=== PATIENT | female | born 1990 | race Caucasian/White ===

== ENCOUNTER 2019-07-26 12:18 | Emergency (ER) | payer OTHER ==
[~2019-07-26] VITALS: Ht 165.1 cm; Wt 67.1 kg
[2019-07-26] MEDS ORDERED: KETOROLAC TROMETHAMINE INJ 30 MG/ML VIAL ONE (12:45)
--- NOTE | 2019-07-26 12:50 | NUR ---
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
[2019-07-26] MEDS ORDERED: KETOROLAC TROMETHAMINE INJ 60 MG/2 ML VIAL IM ONE (13:00)
--- NOTE | 2019-07-26 13:03 | NUR ---
PATIENT C/O FEELING "ACHY" ON HER HEAD. STILL FEELS LIKE "SHE CAN SMELL THE FUMES FROM THE AIRBAG". OFFERED TYLENOL, BUT REFUSED AT THIS TIME.
--- NOTE | 2019-07-26 13:54 | NUR ---
PATIENT A/OX4, BREATHING EVEN AND UNLABORED, NO SOB NOTED, Patient discharged to home in stable condition. Written and verbal after care instructions given. Patient verbalizes understanding of instruction.
[2019-07-26 13:56] VITALS: BP 135/73
== END 2019-07-26 13:56 | disposition home or self-care (01) ==
LOC: ER 12:20
DX: S16.1XXA Strain of muscle, fascia and tendon at neck level, initial encounter (principal); S20.212A Contusion of left front wall of thorax, initial encounter; S50.812A Abrasion of left forearm, initial encounter; R51 Headache; R42 Dizziness and giddiness; V49.49XA Driver injured in collision with other motor vehicles in traffic accident, initial encounter; Y93.89 Activity, other specified; Y92.413 State road as the place of occurrence of the external cause; Y99.8 Other external cause status
CPT/HCPCS: 71045; 73090; 96372; 99283; J1885